=== PATIENT | female | born 1995 | race Caucasian/White ===

== ENCOUNTER → 2021-07-27 | Outpatient (CLI) | payer OTHER | LOC: HEART 5 13:36 | DX: U09.9 Post COVID-19 condition, unspecified (principal); R06.02 Shortness of breath; R00.2 Palpitations | CPT/HCPCS: 93306 ==

== ENCOUNTER 2021-11-09 16:42 | Inpatient (IN) | payer OTHER ==
[~2021-11-09] VITALS: Ht 170.2 cm; Wt 122.5 kg
[2021-11-09 18:07] LABS: HEMOGLOBIN 11.8 gm/dl (12.3-15.3); RED BLOOD COUNT 4.34 M/UL (4.00-5.10); WHITE BLOOD COUNT 12.9 K/UL (4.5-11.0)
[2021-11-09 18:35] LABS: BUN/CREATININE RATIO 11 (0-10)
[2021-11-09] MEDS ORDERED: LABETALOL HCL100 MG PO (18:46)
[2021-11-09] MEDS ORDERED: PRENATAL VITAM1 EAC3 PO (18:47)
[2021-11-09] MEDS ORDERED: IRON325 M1 PO (18:47)
[2021-11-09] MEDS ORDERED: PRILOSEC OTC20 MG PO (18:48)
[2021-11-10] MEDS ORDERED: FEROSUL325 MG PO (22:08)
[2021-11-10] MEDS ORDERED: HYDROCODONE-AC1 EACH PO (22:08)
[2021-11-10] MEDS ORDERED: IBUPROFEN600 MG PO (22:08)
== END 2021-11-12 15:47 | disposition home or self-care (01) | DRG 807 ==
LOC: GENOP 16:42 → OB 18:32
PROVIDERS: Obstetrics & Gynecology; ADMIT Obstetrics & Gynecology
PROC: 10E0XZZ Delivery of Products of Conception, External Approach (ICD-10-PCS; principal; 2021-11-10)
PROC: 0KQM0ZZ Repair Perineum Muscle, Open Approach (ICD-10-PCS; 2021-11-10)
PROC: 10907ZC Drainage of Amniotic Fluid, Therapeutic from Products of Conception, Via Natural or Artificial Opening (ICD-10-PCS; 2021-11-10)
PROC: 3E033VJ Introduction of Other Hormone into Peripheral Vein, Percutaneous Approach (ICD-10-PCS; 2021-11-10)
PROC: 4A1H7CZ Monitoring of Products of Conception, Cardiac Rate, Via Natural or Artificial Opening (ICD-10-PCS; 2021-11-10)
PROC: 10H073Z Insertion of Monitoring Electrode into Products of Conception, Via Natural or Artificial Opening (ICD-10-PCS; 2021-11-10)
PROC: 10H07YZ Insertion of Other Device into Products of Conception, Via Natural or Artificial Opening (ICD-10-PCS; 2021-11-10)
PROC: 3E0234Z Introduction of Serum, Toxoid and Vaccine into Muscle, Percutaneous Approach (ICD-10-PCS; 2021-11-10)
DX: O13.4 Gestational [pregnancy-induced] hypertension without significant proteinuria, complicating childbirth (principal); Z37.0 Single live birth; O69.0XX0 Labor and delivery complicated by prolapse of cord, not applicable or unspecified; Z3A.38 38 weeks gestation of pregnancy; O24.420 Gestational diabetes mellitus in childbirth, diet controlled; O70.1 Second degree perineal laceration during delivery; Z20.822 Contact with and (suspected) exposure to COVID-19; O99.214 Obesity complicating childbirth; E66.9 Obesity, unspecified; Q76.0 Spina bifida occulta; Z82.49 Family history of ischemic heart disease and other diseases of the circulatory system; Z83.3 Family history of diabetes mellitus; Z83.42 Family history of familial hypercholesterolemia; Z88.8 Allergy status to other drugs, medicaments and biological substances; Z23 Encounter for immunization
CPT/HCPCS: 80053; 81001; 82570; 82962; 83615; 84156; 84550; 85014; 85018; 85025; 90715; 93005; C9113; G0378; J2405; J2590; J7120; U0002